=== PATIENT | female | born 2000 | race Caucasian/White ===

== ENCOUNTER 2024-05-12 06:50 | Inpatient (IN) ==
--- NOTE | 2024-05-06 12:56 | Anesthesiology Consultation ---
Date of Service May 06, 2024 Assessment & Plan (1) Encounter for pre-operative examination: Infectious disease screening: Per assessment on 05/06/24: No known recent infectious disease contacts or current infectious disease symptoms. Chart Review Chart Review: entry level account representative initiated History Surgery Operation Date: 05/12/24 08:50 Proposed Procedures p Section in AURY Gross MD Height/Weight Height: 5 ft 2 in Weight: 95.254 kg Allergies Allergy/AdvReac Type Severity Reaction Status Date / Time gluten Allergy Severe Celiac Verified 05/06/24 12:51 disease house dust mite Allergy Intermediate Hives Verified 05/06/24 11:54 mold Allergy Intermediate Itchy Verified 05/06/24 12:51 nickel Allergy Intermediate Skin Verified 05/06/24 12:51 irritation pollen extracts Allergy Intermediate Itchy Verified 05/06/24 12:51 ibuprofen AdvReac Intermediate Diarrhea Verified 05/06/24 11:54 Medications Home Medications Medication Instructions Recorded Confirmed Last Taken vit no.95-ferrous 1 tab PO DAILY 10/02/23 05/06/24 04/23/24 21:00 fumarate 28 mg-folic acid 800 mcg tablet () ondansetron 4 mg disintegrating 4 mg PO Q4H PRN nausea and 11/09/23 05/06/24 04/24/24 10:30 tablet vomiting 0 days #20 tabs Past Medical History Medical History ADHD Previously on Adderall No current meds during Anxiety Celiac disease History of COVID-19 2020: mild cold symptoms > resolved History of PCOS History of spontaneous (2020) No surgical intervention needed Hx of iron deficiency anemia Hx iron infusion [facility] 03/2024 Hx of renal calculi Passed without surgical intervention needed Migraine without aura Chronic Rheumatoid arthritis Previously taking hydroxychloroquine Follows with [facility] Rheumatology No meds during Past Family History Family History Aunt Breast cancer maternal Grandmother (Maternal) Breast cancer great grandmother Other Kidney disease No family history of adverse response to anesthesia Denies family history of Ovarian cancer Colorectal cancer Uterine cancer Past Surgical History Surgical History History of wisdom tooth extraction Social History Smoking Status: Never smoker Do You Dip or Chew Tobacco: No Hx Alcohol Use: No Hx Substance Use: No substance use type: does not use Lab Results Anesthesia Preop Results Results Anesthesia Widget: WBC 13.20 K/ul (4.8-10.8) H 04/24/24 Hgb 11.1 g/dl (12.0-16.0) L 04/24/24 Hct 35.3 % (37.0-47.0) L 04/24/24 Plt 244 K/uL (130-400) 04/24/24 Testing Electrocardiogram Date: 06/01/23 Findings: + NSR @ (48)
--- OUTSIDE RECORDS SUMMARY | 2024-05-12 06:57 | External Medical Summary | Summary of Care ---
Author Name Unknown Organization [facility] Address [address] [place] [address] Phone [phone] Care Team Providers Care Profile Shaper Operator Name Role Phone Unavailable Primary Care Provider Unavailabl e Encounter Details Date Type Department Care Team (Late st Contact Info) Description 04/25/2024 Orders Only Gynecology/Obstetrics Viviane Peacock [address] [place] [id number] Yolis Brewer CRNP [address] [place] [address] Allergies Active Allergy Reactions Criticality Noted Date Comments Ibuprofen Nausea/vomiting 05/11/2023 Lavender Oil Other (Please comment) 05/11/2023 And peppermint give her migraines B-Plex Plus Nausea/vomiting 05/11/2023 Glutens make her nauseous Molds & Smuts Other (Please comment) 05/11/2023 sneezing documented as of this encounter (statuses as of 04/25/2024) Medications Medication Sig Dispensed Refills Start Date End Date Status 27-0.8 MG Oral Tablet Take 1 Tablet by mouth daily at noon. Active OneTouch Verio w/Device KitIndications:High-r isk in second trimester,PCOS (polycystic ovarian syndrome) Use as directed. For testing blood sugar 4 times a day (1 fasting level, and 3 additional levels 1 hour after each meal: breakfast, lunch, dinner). 1 Kit 01/10/2024 Active Additional Information Patient not taking.Reported on 04/18/2024 OneTouch Verio In Vitro Strip (Glucose Blood)Indications:Hig h-risk in second trimester,PCOS (polycystic ovarian syndrome) For testing blood sugar 4 times a day (1 fasting level, and 3 additional levels 1 hour after each meal: breakfast, lunch, dinner). 100 Strip 01/10/2024 Active Additional Information Patient not taking.Reported on 04/18/2024 LancetsIndications:Hi gh-risk in second trimester,PCOS (polycystic ovarian syndrome) For testing blood sugar 4 times a day (1 fasting level, and 3 additional levels 1 hour after each meal: breakfast, lunch, dinner). 100 Each 01/10/2024 Active Additional Information Patient not taking.Reported on 04/18/2024 Breast Pump Use as directed 1 Each 02/18/2024 Active Ondansetron 4 MG Oral Tablet Disintegrating (Zofran) DISSOLVE 1 TABLET ON TONGUE EVERY 8 HOURS 30 Tablet 3 04/18/2024 Active documented as of this encounter (statuses as of 04/25/2024) Active Problems Problem Noted Date Diagnosed Date Malpresentation of fetus 04/22/2024 Overview: Breech. C/s Antepartum anemia 02/20/2024 PCOS (polycystic ovarian syndrome) 11/13/2023 Last Assessment & Plan: CONSIDERATIONS: Discussed that there is an increased incidence of spontaneous and gestational diabetes mellitus in women with PCOS. However, there is no increased incidence of poor outcomes. RECOMMENDATIONS: Due to the increased risk for diabetes in this population, recommend testing for undiagnosed type 2 diabetes mellitus with the first visit using the standard diagnostic criteria (2016 ADA Diabetes Management Guidelines) and if not performed, screen for early GDM and HgbA1c. Obesity in , antepartum 11/13/2023 Overview: Class 1 Last Assessment & Plan: Low risk first screen appreciated. Early 1'GTT not complete. Mental disorder in 11/13/2023 Overview: -Depression, anxiety, OCD, ADHD -Mood stable, no meds since 2017 -> declinesinterventions Last Assessment & Plan: -Reviewed importance of surveillance and mental health disorders in -Precautions discussed -Pt aware to seek out care/follow up as needed should her mood change - period is a uniquely high risks period for mood instability/progress to depression High-risk 11/13/2023 Overview: -Initiated care at [facility], transfer to [facility] at 13+ weeks -LR NIPT, normal first trimester scan Family history of congenital heart defect 2023 Overview: FOB - transposition of arteries Last Assessment & Plan: was referred for echo to [facility], however now get care at [facility]. Will assist with peds cardiology appt at and can cancel visit to [place]. Rheumatoid arthritis 11/13/2023 Overview: -Stopped plaquenil, for nausea/vomiting inability to tolerate PO -Overall did well with plaquenil, occasional DEMARCO otherwise no recent flare-ups -> last one 07/2023. -Last seen by Rheumatology 04/2023. -"Gets intermittent flareups Noted to have + RONNY twice, 1:160. Family history of SLE Given patient's history and physical examination, I feel that her symptoms are due to seronegative RA " Last Assessment & Plan: Overview: Current medications include n/a -> considering re-starting Plaquenil Patient denies active symptoms of rheumatoid arthritis. Previous SSA/SSB testing not performed/not indicated. 1. Rheumatoid arthritis is the most common autoimmune disease in women of childbearing age. The prevalence is approximately 1 in 2000 pregnancies with a peak incidence at 35 to 40 years of age. 2. related changes in circulating hormones may contribute to a shift to a less inflammatory state during . Approximately 70-80% of women note an improvement in their RA during , and this usually is evident as early as the first trimester. However, approximately 90% of patients will experience a flare, usually within the first three months. 3. NSAID's for symptom management are associated with oligohydramnios and premature ductus arteriosus closure and should be avoided. 4. Glucocorticoid therapy is felt to be safe in if the benefits outweigh the risks of growth restriction at high doses, need for stress-dose steroids at delivery or for medical illness if chronic use antepartum, and increased risk for premature rupture of membranes and delivery. 5. Generally, the lowest possible dose of prednisone for disease control is recommended for patients whose RA becomes active during . 6. Methotrexate, leflunamide, minocycline, gold salts, and penicillinamine are contraindicated in . 7. Hydroxychloroquine is generally thought to be safe. There is a risk for rare ocular side-effects in the fetus. 8. RA itself does not appear to have any negative effects on . There is no documented association between increased loss, IUGR, or other complications and uncomplicted RA. Therefore, increased surveillance secondary to maternal RA is not necessary. Elevated antinuclear antibody (RONNY) level 2020 Overview: -Last seen by Rheumatology 04/2023. -"Gets intermittent flareups Noted to have + RONNY twice, 1:160. Family history of SLE Given patient's history and physical examination, I feel that her symptoms are due to seronegative RA " Attention deficit hyperactiv ity disorder (ADHD), predominantly inattentive type 12/09/2020 Intractable migraine 06/06/2017 OCD (obsessive compulsive disorder) 04/06/2016 Overview: Last Assessment & Plan: contd to have mild- mod sx, mild-mod improvement seen with therapy alone Has tried multiple SSRI and SNRI-had side effects Continue with individual therapy and family therapy Trazodone as needed for sleep Sleep hygiene reviewed BIBIANA (generalized anxiety disorder) 02/15/2016 Overview: Last Assessment & Plan: Has tried multiple SSRI and SNRI-had side effects Continue with individual therapy and family therapy Episode of recurrent major depressive disorder 0 02/14/2016 Overview: Last Assessment & Plan: Depressive symptoms since middle school-school avoidance Has tried multiple SSRI and SNRI-had side effects Continue with individual therapy and family therapy Trazodone as needed for sleep Sleep hygiene reviewed Comments Yes documented as of this encounter (statuses as of 04/25/2024) Resolved Problems Problem Noted Date Diagnosed Date Resolved Date High-risk 11/13/2023 11/13/19 24 documented as of this encounter (statuses as of 04/25/2024) Social History Tobacco Use Types Packs/Day Years Used Date Smoking Tobacco: Never Smokeless Tobacco: Never Alcohol Use Standard Drinks/Week Comments Never 0 (1 standard drink = 0.6 oz pur e alcohol) Hunger Vital Sign Answer Date Recorded Within the past 12 months, y ou worried that your food would run out before you got the money to buy more. Never true 01/09/20 Within the past 12 months, t he food you bought just didn't last and you didn't have money to get more. Never true 01/09/2024 [place] Depression Scale Answer Date Recorded [place] Depression Scale Total 2 11/13/2023 The thought of harming myself has occurred to me . Never 11/13/2023 Childcare Answer Date Recorded Do you feel overwhelmed with taking care of a child, family member or friend? No 01/09/2024 Does your family need help f inding childcare? (Household - for ages 0-17 years) Not on file 01/09/2024 Clothing Answer Date Recorded Have you been unable to get clothing when it was really needed? No 01/09/2024 Is your family able to get c lothes or diapers when needed? (Household - for ages 0-17 years) Not on file 01/09/2024 Personal Safety Answer Date Recorded Do you feel unsafe or have concerns for your saf ety? No 01/09/2024 Do you have concerns for you r family's safety? (Household - for ages 0-17 years) Not on file 01/09/2024 Utilities Answer Date Recorded Do you have trouble paying y our heating, water, or electric bill? No 01/09/2024 Is your family able to pay t he heat, water, or electric bill? (Household - for ages 0-17 years) Not on file 01/09/2024 Does your family have access to good internet? (Household - for ages 0-17 years) Not on file 01/09/2024 Employment Status Answer Date Recorded Are you unemployed or without regular income? Ye s 01/09/2024 Does the household have a re gular source of income? (Household - for ages 0-17 years) Not on file 01/09/2024 Social Connections Answer Date Recorded How often do you feel lonely or isolated from th ose around you? Rarely 01/09/2024 Financial Resource Strain Answer Date R ecorded Do you have any trouble payi ng for your medications, or do you think you might in the future? No 01/09/2024 Does your family have troubl e paying for medicine? (Household - for ages 0-17 years) Not on file 01/09/2024 Transportation Needs Answer Date Record ed READ ONLY Do you have troubl e getting a ride to medical visits or work? Never True 01/09/2024 Does your family have a hard time getting a ride to doctors visits? (Household - for ages 0-17 years) Not on file 01/09/2024 Has lack of transportation k ept you from medical appointments, meetings, work, or from getting things needed for daily living? Check all that apply. (Adult - for ages 18 years and over) Not on file 01/09/2024 Do you (or your family) have trouble finding or paying for a ride (transportation)? (Household - for ages 0-17 years) Not on file 01/09/2024 Housing Stability Answer Date Recorded Do you currently live in a s helter or have no steady place to sleep at night? No 01/09/2024 READ ONLY Do you think you a re at risk of becoming homeless? No 01/09/2024 Does your family worry about paying for your home or becoming homeless? (Household - for ages 0-17 years) Not on file 0 01/09/2024 Are you homeless or worried that you might be in the future? (Adult - for ages 18 years and over) Not on file Are you (or your family) doretha eless or worried that you might be in the future? (Household - for ages 0-17 years) Not on file Food Insecurity Answer Date Recorded Do you need food for this week? No 01/09/2024 Are you able to get enough f ood for your family? (Household - for ages 0-17 years) Not on file 01/09/2024 Does your family need food t his week? (Household - for ages 0-17 years) Not on file 01/09/2024 Do you always have enough fo od for your family? (Household - for ages 0-17 years) Not on file 01/09/2024 Comments Yes Sex and Gender Information Value Date Recorded Sex Assigned at Female 10/16/2023 2:09 PM EST Gender Identity Female 10/16/2023 2:09 PM EST Sexual Orientation Straight 10/16/2023 2: 09 PM EST Job Start Date Occupation Industry Not on file Not on file Not on file documented as of this encounter Plan of Treatment Upcoming Encounters Date Type Department Care Team (Late st Contact Info) Description 04/30/2024 1:30 PM EDT Office Visit Gynecology/Obstetrics Viviane Peacock [address] [place] [phone] Yolis Brewer CRNP [address] [place] [id number] Health Maintenance Due Date Last Done Comments Depression Monitoring 2014 HPV (Gardasil) Vaccine (1 - 3-dose series) 2017 Hepatitis C Screening 2020 DTaP,Tdap,and Td Vaccines (1 - Tdap) 2021 Hepatitis B Vaccine (1 of 3 - 19+ 3-dose series) 2021 Yearly Wellness Visit 02/14/2022 02/14/2021 COVID-19 Vaccine (1 - 2022-2 4 season) 2023 Influenza Vaccine (FLU shot) (#1) 2024 Gonorrhea / Chlamydia Screen 10/14/2024 10/14/2023 Pap Smear 09/03/2026 09/03/2023 MENINGOCOCCAL (MENACTRA/MENVEO) Aged Out No longer eligible based on patient's age to complete this topic Pneumococcal Vaccine: Pediat rics (0 to 5 Years) and At-Risk Patients (6 to 64 Years) Aged Out No longer eligi ble based on patient's age to complete this topic documented as of this encounter Medical Devices Not on filedocumented as of this encounter Procedures Procedure Name Priority Date/Time Associated Diagnosis Comments CHEMISTRY-OUTSIDE Routine 04/24/2024 documented in this encounter Results * (ABNORMAL) CHEMISTRY-OUTSIDE (04/24/2024) Not all results display below - see scan for full detail OUTSIDE LAB (SEE SCANNED REPORT) Comment:SEE SCAN: HP, CBCD CREATININE-OUTSID E LAB OUTSIDE LAB (SEE SCANNED REPORT) EGFR-OUTSIDE LAB OUT SIDE LAB (SEE SCANNED REPORT) POTASSIUM-OUTSIDE LAB OUTSIDE LAB (SEE SCANNED REPORT) GLUCOSE-OUTSIDE LAB OUTSIDE LAB (SEE SCANNED REPORT) HOURS FASTING OUTSID E LAB (SEE SCANNED REPORT) TRIGLYCERIDES-OUT SIDE LAB OUTSIDE LAB (SEE SCANNED REPORT) CHOLESTEROL-OUTSI DE LAB OUTSIDE LAB (SEE SCANNED REPORT) HDL-OUTSIDE LAB OUTS AGU[facility]A LAB (SEE SCANNED REPORT) CHOL/HDL RATIO-OUTSIDE LAB OUTSIDE LA B (SEE SCANNED REPORT) LDL (CALCULATED)-OUTS [facility] LAB OUTSIDE LAB (SEE SCANNED REPORT) LDL (DIRECT MEASURE)-OUTSIDE LAB OUTSIDE LAB (SEE SCANNED REPORT) HEMOGLOBIN, C1U-EXGUNZU LAB OUTSIDE LAB (SEE SCANNED REPORT) PHOSPHORUS-OUTSID E LAB OUTSIDE LAB (SEE SCANNED REPORT) PTH-OUTSIDE LAB OUTS AGU[facility]A LAB (SEE SCANNED REPORT) MICROALBUMIN RATIO-OUTSIDE LAB OUTSIDE LA B (SEE SCANNED REPORT) PROTEIN, UA-OUTSIDE LAB OUTSIDE LAB (SEE SCANNED REPORT) HGB 11.1(L) 12.0 - 16.0 G/DL OUTSIDE LAB (SEE SCANNED REPORT) 04/24/2024 [facility] OUTSIDE LAB (SEE SCANNED REPORT) documented in this encounter
--- OUTSIDE RECORDS SUMMARY | 2024-05-12 06:57 | External Medical Summary | Summary of Care ---
Author Name Unknown Organization [facility] Address [address] [place] [address] Phone [phone] Care Team Providers Care Communication Lecturer Name Role Phone Unavailable Primary Care Provider Unavailabl e Reason for Visit * Reason Comments Field Inspector Return Encounter Details Date Type Department Care Team (Late st Contact Info) Description 05/07/2024 2:00 PM EDT Office Visit Gynecology/Obstetric s Garylyn Peacock [address] [facility] [place] [address] Gene Rajan MD [address] [facility] [address] Elevated antinuclear antibody (RONNY) level*; PCOS (polycystic ovarian syndrome); Obesity in , antepartum; Mental disorder during in third trimester; High-risk in third trimester; Family history of congenital heart defect; Rheumatoid arthritis involving left knee with negative rheumatoid factor (HCC); Unstable lie, single or unspecified fetus; Preop testing Allergies Active Allergy Reactions Criticality Noted Date Comments Ibuprofen Nausea/vomiting 05/11/2023 Lavender Oil Other (Please comment) 05/11/2023 And peppermint give her migraines B-Plex Plus Nausea/vomiting 05/11/2023 Glutens make her nauseous Molds & Smuts Other (Please comment) 05/11/2023 sneezing documented as of this encounter (statuses as of 05/07/2024) Medications Medication Sig Dispensed Refills Start Date [...] as of this encounter (statuses as of 05/07/2024) Active Problems Problem Noted Date Diagnosed Date [...] depression High-risk 11/13/2023 Overview: -Initiated care at [facility], transfer to [facility] at 13+ weeks -LR NIPT, normal first trimester scan Family history of congenital heart defect 2023 Overview: FOB - transposition of arteries Last Assessment & Plan: was referred for echo to [facility], however now get care at [facility]. Will assist with peds cardiology appt at and can cancel visit to [place]. Rheumatoid arthritis 11/13/2023 Overview: -Stopped plaquenil, for [...] as of this encounter (statuses as of 05/07/2024) Resolved Problems Problem Noted Date Diagnosed Date Resolved Date High-risk 11/13/2023 11/13/19 24 documented as of this encounter (statuses as of 05/07/2024) Social History Tobacco Use Types Packs/Day Years Used Date Smoking Tobacco: Never Smokeless Tobacco: Never Alcohol Use Standard Drinks/Week Comments Never 0 (1 standard drink = 0.6 oz pur e alcohol) Hunger Vital Sign Answer Date Recorded Within the past 12 months, y ou worried that your food would run out before you got the money to buy more. Never true 01/09/20 24 Within the past 12 months, t he food you bought just didn't last and you didn't have money to get more. Never true 01/09/2024 [place] Depression Scale Answer Date Recorded [place] Depression Scale Total 2 11/13/2023 The thought [...] 18 years and over) Not on file 05/08/202 4 Are you (or your family) doretha eless [...] on file documented as of this encounter Last Filed Vital Signs Vital Sign Reading Time Taken Comments Blood Pressure 100/60 05/07/2024 2:13 PM EDT Pulse - - Temperature - - Respiratory Rate - - Oxygen Saturation - - Inhaled Oxygen Concentration - - Weight 97.5 kg (215 lb) 05/07/2024 2:13 PM EDT Height 157.5 cm (5' 2") 05/07/2024 2:13 PM EDT Body Mass Index 39.32 05/07/2024 2:13 PM EDT documented in this encounter Progress Notes * Gene Rajan MD - 05/07/2024 2:27 PM EDT Pt here for preop H&P done Will obtain consent on day of surgery documented in this encounter H&P Notes * Gene Rajan MD - 05/07/2024 2:28 PM EDT [facility] [address] [facility] [address] Appt line [phone] Sarah Danielle is a 23 year old year old year old at 39w0d Patient is . Estimated Date of Delivery: 05/14/24 Patient is here for preop for breech presentation Care: Unremarkable OB History Para Term AB Living 2 1 SAB IAB Ectopic Multiple Live Births 1 # Outcome Date GA Lbr Beck/2nd Weight Sex Type Anes PTL Lv 2 Current 1 SAB 07/13/21 4w0d SPONTANEOUS Comments: chemical Obstetric Comments FOB#1 Jannet Rich, 24 yo, healthy however born with transposition of great vessels -> , no otherchildren from prior relationship Date Labor Sex Delivery Anesth Del Comments GA Length Weight Type Site Field Inspector History: Menstrual Index: // days. Denies h/o STDs and abnormal Paps. Her past medical/surgical histories and current medications are recorded in the electronic record. Past Surgical History: Procedure Laterality Date DENTAL SURGERY PROCEDURE NEC Family History Problem Relation Name Age of Onset No Known Problems Mother No Known Problems Father Breast Cancer Grandmother (Maternal) early? no issues, passed from natural causes Breast Cancer Aunt (Maternal) "small tumor" - radiation History Social History Socioeconomic History Marital status: Single Spouse name: Not on file Number of children: Not on file Years of education: Not on file Highest education level: Not on file Occupational History Not on file Tobacco Use Smoking status: Never Smokeless tobacco: Never Vaping Use Vaping status: Never Used Substance and Sexual Activity Alcohol use: Never Drug use: Never Sexual activity: Yes Partners: Male Other Topics Concern Not on file Social History Narrative Not on file Social Determinants of Health Financial Resource Strain: Low Risk (03/13/2024) Received from [facility] Overall Financial Resource Strain (CARDIA) Difficulty of Paying Living Expenses: Not very hard Food Insecurity: No Food Insecurity (03/13/2024) Received from [facility] Hunger Vital Sign Worried About Running Out of Food in the Last Year: Never true Ran Out of Food in the Last Year: Never true Recent Concern: Food Insecurity - Food Insecurity Present (12/25/2023) Hunger Vital Sign Worried About Running Out of Food in the Last Year: Never true Ran Out of Food in the Last Year: Sometimes true Transportation Needs: No Transportation Needs (03/13/2024) Received from [facility] PRAPARE - Transportation Lack of Transportation (Medical): No Lack of Transportation (Non-Medical): No Social Connections: Socially Integrated (01/09/2024) Social Connections How often do you feel lonely or isolated from those around you? (Adult - for ages 18 years and over): Rarely Housing Stability: Unknown (03/13/2024) Received from [facility] Housing Stability Vital Sign Unable to Pay for Housing in the Last Year: No Number of Times Moved in the Last Year: Not on file Homeless in the Last Year: No @ACTMEDS@ Physical Exam: BP 100/60 | Ht 1.575 m (5' 2") | Wt 97.5 kg (215 lb) | LMP 07/31/2023 | BMI 39.32 kg/m | BSA 2.07m CV: S1, S2. Regular rate and Rhythm Lungs: Clear to auscultation bilaterally. Abdomen: Soft with a gravid uterus and no palpable contractions. Fundal Height: 39cms heart rate: 150/min Extremities: Soft non tender calves bilaterally. Bedside sono: breech presentation A/P: 23 year old year old Breech presentation Bedside sono done today confirms breech We have discussed the risk alternatives and complications of surgery including more surgery to correct complication,risk of anesthesia,infection,damage to internal organs and . We have also discussed the possibility that pt's present situation may not change. Pt is aware and wishes to proceed to surgery. Consent is signed Gene Rajan MD 05/07/2024 2:28 PM documented in this encounter Nursing Notes * Sydnee Monge LPN - 05/07/2024 2:03 PM EDT Pt is here for pre-op for csection documented in this encounter Plan of Treatment Upcoming Encounters Date Type Department Care Team (Late st Contact Info) Description 05/21/2024 1:30 PM EDT Office Visit Gynecology/Obstetrics Viviane Peacock [address] [place] [address] BackerAmber CRNP [address] [place] [phone] Health Maintenance Due Date Last Done Comments Depression Monitoring 2014 HPV (Gardasil) Vaccine (1 - 3-dose series) 2017 Hepatitis C Screening 2020 DTap/Tdap Vaccines (1 - Tdap) 2021 Hepatitis B Vaccine (1 of 3 - 19+ 3-dose series) 2021 Yearly Wellness Visit 02/14/2022 02/14/2021 COVID-19 Vaccine (1 - 2022-2 4 season) 2024 Influenza Vaccine (FLU shot) (#1) 2024 Gonorrhea [...] Not on filedocumented as of this encounter Visit Diagnoses Diagnosis Elevated antinuclear antibody (RONNY) level- Primary Other and unspecified nonspecific immunological findings PCOS (polycystic ovarian syndrome) Polycystic ovaries Obesity in , antepartum Obesity complicating , childbirth, or the puerperium, antepartum condition or complication Mental disorder during in third trimester High-risk in third trimester Family history of congenital heart defect Family history of congenital anomalies Rheumatoid arthritis involving left knee with negative rheumatoid factor (HCC) Unstable lie, single or unspecified fetus Preop testing Preoperative examination, unspecified documented in this encounter
--- OUTSIDE RECORDS SUMMARY | 2024-05-12 06:57 | External Medical Summary | Summary of Care ---
Author Name Unknown Organization [facility] Address [address] [place] [address] Phone [phone] Care Team Providers Care Abnormal Psychology Teacher Name Role Phone Unavailable Primary Care Provider Unavailabl e Reason for Visit * Reason Comments Return Visit Encounter Details Date Type Department Care Team (Late st Contact Info) Description 04/30/2024 1:30 PM EDT Office Visit Gynecology/Obstetric s Viviane Peacock [address] [place] [address] Yolis Brewer CRNP [address] [place] [address] High-risk in third trimester*; Elevated antinuclear antibody (RONNY) level; PCOS (polycystic ovarian syndrome); Obesity in , antepartum; Mental disorder during in third trimester; Family history of congenital heart defect; Rheumatoid arthritis of other site, unspecified whether rheumatoid factor present (HCC); Breech presentation, single or unspecified fetus Allergies Active Allergy Reactions Criticality Noted Date Comments Ibuprofen Nausea/vomiting 05/11/2023 Lavender Oil Other (Please comment) 05/11/2023 And peppermint give her migraines B-Plex Plus Nausea/vomiting 05/11/2023 Glutens make her nauseous Molds & Smuts Other (Please comment) 05/11/2023 sneezing documented as of this encounter (statuses as of 04/30/2024) Medications Medication Sig Dispensed Refills Start Date [...] as of this encounter (statuses as of 04/30/2024) Active Problems Problem Noted Date Diagnosed Date [...] depression High-risk 11/13/2023 Overview: -Initiated care at [facility], transfer to [facility] at 13+ weeks -LR NIPT, normal first trimester scan Family history of congenital heart defect 2023 Overview: FOB - transposition of arteries Last Assessment & Plan: was referred for echo to [facility], however now get care at [facility]. Will assist with peds cardiology appt at [facility] and can cancel visit to [place]. Rheumatoid arthritis 11/13/2023 Overview: -Stopped plaquenil, for [...] as of this encounter (statuses as of 04/30/2024) Resolved Problems Problem Noted Date Diagnosed Date Resolved Date High-risk 11/13/2023 11/13/19 24 documented as of this encounter (statuses as of 04/30/2024) Social History Tobacco Use Types Packs/Day Years [...] money to get more. Never true 01/09/2024 Carroll Depression Scale Answer Date Recorded Carroll Depression Scale Total 2 11/13/2023 The thought [...] Sign Reading Time Taken Comments Blood Pressure 98/64 04/30/2024 1:37 PM EDT Pulse - - Temperature - - Respiratory Rate - - Oxygen Saturation - - Inhaled Oxygen Concentration - - Weight 96.6 kg (213 lb) 04/30/2024 1:37 PM EDT Height 157.5 cm (5' 2") 04/30/2024 1:37 PM EDT Body Mass Index 38.96 04/30/2024 1:37 PM EDT documented in this encounter Progress Notes * Yolis Brewer CRNP - 04/30/2024 1:52 PM EDT 38w Has had some painful, irregular, contractions. No bleeding or LOF. Baby is active, discussed movement. Has c/s scheduled for 05/12. DANIA Stallworth documented in this encounter Nursing Notes * Jessica Aguilar LPN - 04/30/2024 1:41 PM EDT 38w0d Csection 05/12 documented in this encounter Plan of Treatment Upcoming Encounters Date Type Department Care Team (Late st Contact Info) Description 05/07/2024 10:45 AM EDT Office Visit Gynecology/Obstetrics Viviane Peacock [address] [place] [address] Gene Rajan MD [address] [place] [address] Health Maintenance Due Date Last Done Comments [...] as of this encounter Visit Diagnoses Diagnosis High-risk in third trimester- Primary Elevated antinuclear antibody (RONNY) level Other and unspecified nonspecific immunological findings PCOS (polycystic ovarian syndrome) Polycystic ovaries Obesity in , antepartum Obesity complicating , childbirth, or the puerperium, antepartum condition or complication Mental disorder during in third trimester Family history of congenital heart defect Family history of congenital anomalies Rheumatoid arthritis of other site, unspecified whether rheumatoid factor present (HCC) Breech presentation, single or unspecified fetus documented in this encounter
[2024-05-12] MEDS ORDERED: PHENYLEPHRINE 100MCG/ML 10ML SYR IV ONE (06:58)
[2024-05-12] MEDS ORDERED: ONDANSETRON INJ 2 MG/ML 2 ML VIAL ONE (06:58)
[2024-05-12] MEDS ORDERED: fentaNYL citrate PF 100 MCG/2 ML VIAL ONE (06:58)
[2024-05-12] MEDS ORDERED: KETOROLAC 30 MG/ML VIAL ONE (06:58)
[2024-05-12] MEDS ORDERED: DEXAMETHASONE SOD INJ 4 MG/ML VIAL ONE (06:58)
[2024-05-12] MEDS ORDERED: MoRPHine SULFATE PF 1 MG/ML 10 ML AMP/VIAL ONE (06:58)
[2024-05-12] MEDS ORDERED: OXYTOCIN 10 UNITS/ML VIAL ONE (06:58)
[2024-05-12] MEDS ORDERED: LIDOCAINE 1% LOCAL 20 ML VIAL INFIL PRN (07:01)
[2024-05-12] MEDS ORDERED: OXYTOCIN 30 UNITS/NSS 30 UNITS/500 ML BAG IV PRN (07:01)
[2024-05-12] MEDS: LACTATED RINGER'S 1,000 ML IV PRN (07:10)
[2024-05-12] MEDS: ACETAMINOPHEN 500 MG TAB PO STA (07:21)
[2024-05-12 07:31] LABS: Hemoglobin 11.6 g/dl (12.0-16.0); Mean Corpuscular Hemoglobin 26.9 pg (25.0-34.0); Mean Corpuscular Hgb Conc 32.2 g/dL (32.0-36.0); Mean Corpuscular Volume 83.5 fL (80.0-100.0); Mean Platelet Volume 12.4 fL (9.4-12.4); Platelet Count 223 K/uL (130-400); RDW Coefficient of Variation 21.3 % (11.5-14.5); RDW Standard Deviation 64.6 fL (36.4-46.3); Red Blood Count 4.31 M/uL (4.20-5.40)
--- NOTE | 2024-05-12 07:43 | History & Physical Bridge Note ---
Date of Service May 12, 2024 History & Physical Bridge Note I have examined the patient, reviewed the History & Physical and in the interval since the performance of the History & Physical I have noted the following changes of clinical significance: no changes noted Bed side US: jane hatch
[2024-05-12] MEDS: CITRIC ACID/SODIUM CITRATE 15 ML UDC ONE (08:09)
[2024-05-12] MEDS: CITRIC ACID/SODIUM CITRATE 15 ML UDC PO STA (08:09)
[2024-05-12] MEDS: ceFAZolin 2000MG 2,000 MG/15 ML SYR IV STA (08:13)
[2024-05-12] MEDS ORDERED: ePHEDrine sulfate 50 MG/5 ML SYR ONE (08:48)
[2024-05-12] MEDS ORDERED: NALBUPHINE HCL INJ 10 MG/ML AMP IV PRN (08:51)
[2024-05-12] MEDS ORDERED: diphenhydrAMINE 50 MG/ML VIAL IV PRN (08:51)
[2024-05-12] MEDS ORDERED: PROMETHAZINE 6.25 MG/50.25 ML BAG IV PRN (08:51)
[2024-05-12] MEDS ORDERED: NALOXONE HCL 1 MG in SODIUM CHLORIDE 0.9% 1,000 ML IV PRN (08:51)
[2024-05-12] MEDS ORDERED: LACTATED RINGER'S 500 ML IV PRN (08:51)
[2024-05-12] MEDS ORDERED: NALOXONE HCL 0.08 MG in SYRINGE 1.8 ML IV PRN (08:51)
[2024-05-12] MEDS ORDERED: NALOXONE HCL 0.4 MG/1 ML VIAL/CARP IV PRN (08:51)
[2024-05-12] MEDS ORDERED: HYDROmorphone INJ 0.5 MG/0.5 ML SYR IV PRN (08:51)
[2024-05-12] MEDS ORDERED: ONDANSETRON INJ 2 MG/ML 2 ML VIAL IV PRN (08:51)
[2024-05-12] MEDS ORDERED: ePHEDrine sulfate 50 MG/ML AMP IV PRN (08:51)
[2024-05-12] MEDS ORDERED: DC INTRASPINAL MORPHINE SCH (09:00)
[2024-05-12] MEDS ORDERED: HYDROCORTISONE ACETATE 25 MG SUPP PR PRN (09:32)
[2024-05-12] MEDS ORDERED: diphenhydrAMINE Capsule 25 MG CAP PO PRN (09:32)
[2024-05-12] MEDS ORDERED: BENZOCAINE 20% SPRY 85 APPLN/85 GM CAN EXT PRN (09:32)
[2024-05-12] MEDS ORDERED: MAGNESIUM HYDROXIDE SUSP 30 ML UDC PO PRN (09:32)
[2024-05-12] MEDS ORDERED: CALCIUM CARBONATE 500 MG CHEWABLE TAB PO PRN (09:32)
[2024-05-12] MEDS ORDERED: DIPHTHER/TETAN/PERTUS Vaccine (Tdap, Adol/Adult) 0.5mL IM ONE (09:32)
--- NOTE | 2024-05-12 09:38 | Anesthesiology Progress Note ---
Date of Service May 12, 2024 Anesthesia Post Procedure Vital Signs Vital Signs: Temp Pulse Resp BP Pulse Ox 05/12/24 09:34 91 05/12/24 09:34 74 05/12/24 09:33 72 05/12/24 09:33 118/60 05/12/24 09:32 99 05/12/24 09:32 69 05/12/24 08:00 20 05/12/24 08:00 20 05/12/24 07:35 36.7 C 20 05/12/24 07:30 20 05/12/24 07:30 20 05/12/24 07:00 107 H 116/72 Transfer of Care Handoff Completed per policy Notes Mental Status: alert / awake / arousable and participated in evaluation Patient Amnestic to Procedure: No Nausea / Vomiting: adequately controlled Pain: adequately controlled Airway Patency, RR, SpO2: stable & adequate BP & HR: stable & adequate Hydration State: stable & adequate Neuraxial Anesthesia: was administered and sensory block is resolving Anesthetic Complications: no major complications apparent and Pt Satisfied with anesthetic care
--- NOTE | 2024-05-12 09:44 | Operative Report ---
Post Operative Report Pre & Post Diagnosis Operation Date: 05/12/24 08:50 <No data on this case meets the specified criteria> I identified the patient and participated in the time-out.: Yes Procedure Operation Date: 05/12/24 08:50 <No data on this case meets the specified criteria> Primary Low transverse Csection with Pfannestiel incision Surgeon Elba Gross MD Platform Stapler [place] Chakraborty Estimated Blood Loss 705 (QBL 705) Findings Consistent with Post-Op Diagnosis Baby was a viable female delivered at 08:45 AM, jane breech presentation, Apgars 8/9, weight 3840 g, maternal findings, normal uterus, fallopian tubes and ovaries. Specimens placenta and cord Drains Jacobson catheter drained 100 mL of clear urine Anesthesia Type Spinal Complications none Disposition Accompanied Patient To Recovery: Yes Indications patient is a 23-year-old G1, P0 at 39 weeks and 5 days of gestation, jane breech presentation Description of Procedure Patient was taken to operating room where a spinal anesthesia was given without difficulty. She was placed in dorsal supine position with a leftward tilt. She was prepared and draped in usual sterile fashion. A financial skin incision was made and carried through to the underlying layer of fascia with the Bovie. Fascia was incised in the midline and incision was extended laterally with the help of Glover scissors. Then the upper aspect of the fascial incision was grasped with 2 Lance clamps elevated the underlying rectus muscles were dissected off sharply with Glover scissors. Same thing was done on the lower incision. Then the muscles were in the midline, peritoneum was identified grasped with 2 pickups and entered sharply with Metzenbaum scissors. Peritoneal incision was extended superior and inferiorly with good visualization of the bladder. The bladder blade was inserted. Vesicouterine peritoneum was identified, grasped with pickups and entered sharply with Metzenbaum scissors, bladder flap was created digitally and bladder blade was reinserted. Uterus was incised in transverse fashion, incision was extended laterally, membranes were ruptured and clear fluid was obtained. Baby's buttocks were delivered , followed by legs and arms in flexion position and then head without difficulty. Mouth and nose were suctioned there was dried on the field he was vigorously crying and moving. The cord was clamped times and cut at 1 minute delay and then the infant was handed off to the pediatric team. Then the placenta was delivered manually as intact and complete. Uterus was externalized and cleared of all clots and debris's. Uterine incision was repaired with 0 Vicryl in a running locked fashion, second umbricating layer was placed with the same suture in running locked fashion. Excellent hemostasis achieved. Cul-de-sac and the pelvis was irrigated with warm normal saline and suctioned. Incision was checked of anesthetic again. Uterus was returned to the abdomen, parietal peritoneum was reapproximated with 3-0 Vicryl in a running fashion and the muscles were reapproximated in the same suture in a running fashion. All of the fascia and rectus muscles were hemostatic. Rectus fascia was reapproximated with 3-0 Vicryl starting from both corners meeting in the midline. Subcuticular fat tissue was brought together with 2-0 Vicryl in a running fashion, skin was closed with 4-0 Monocryl in a subcuticular cuticular fashion. The mom and baby tolerated procedure well. Sponge needle instrument count was correct x3. No complications happened, I was present during whole procedure. My permit review assistant was needed for retraction, hemostasis and aid during delivery of infant I attest to the content of the Intraoperative Record and any orders documented therein. Any exceptions are noted below.
[2024-05-12] MEDS ORDERED: LACTATED RINGER'S 1,000 ML IV SCH (10:00)
[2024-05-12] MEDS ORDERED: IBUPROFEN 600 MG TAB PO SCH (10:00)
[2024-05-12] MEDS ORDERED: NO NARCOTICS OR SEDATIVES SCH (10:15)
[2024-05-12] MEDS: OXYTOCIN 20 UNITS/LR 1,002 ML IV SCH (13:08)
[2024-05-12] MEDS: ACETAMINOPHEN 325 MG TAB PO SCH (13:45)
[2024-05-12] MEDS: KETOROLAC 30 MG/ML VIAL IV PRN (14:28)
[2024-05-12] MEDS: SIMETHICONE 80 MG CHEW PO SCH (17:19)
[2024-05-12] MEDS: SENNA 8.6 MG TAB PO PRN (19:54)
[2024-05-13] MEDS ORDERED: diphenhydrAMINE 50 MG/ML VIAL IV PRN (02:52)
[2024-05-13] MEDS ORDERED: NO NARCOTICS OR SEDATIVES SCH (02:52)
[2024-05-13] MEDS ORDERED: HYDROmorphone INJ 0.5 MG/0.5 ML SYR IV PRN (02:52)
[2024-05-13] MEDS ORDERED: PROMETHAZINE 12.5 MG/50.5 ML BAG IV PRN (02:52)
[2024-05-13 06:31] LABS: Basophils # (auto) 0.07 K/uL (0.00-0.20); Basophils % (auto) 0.3 %; Eosinophils # (auto) 0.06 K/uL (0.00-0.50); Eosinophils % (auto) 0.3 %; Hematocrit (blood only) 29.6 % (37.0-47.0); Hemoglobin 9.6 g/dl (12.0-16.0); Immature Granulocytes # (auto) 0.14 K/uL (0.01-0.20); Immature Granulocytes % (auto) 0.7 %; Lymphocytes # (auto) 3.28 K/uL (1.20-3.40); Lymphocytes % (auto) 16.2 %; Mean Corpuscular Hgb Conc 32.4 g/dL (32.0-36.0); Mean Corpuscular Volume 83.4 fL (80.0-100.0); Mean Platelet Volume 12.9 fL (9.4-12.4); Monocytes # (auto) 1.86 K/uL (0.11-0.59); Monocytes % (auto) 9.2 %; Neutrophils # (auto) 14.84 K/uL (1.40-6.50); Neutrophils % (auto) 73.3 %; Platelet Count 207 K/uL (130-400); RDW Coefficient of Variation 21.2 % (11.5-14.5); RDW Standard Deviation 63.8 fL (36.4-46.3); Red Blood Count 3.55 M/uL (4.20-5.40); White Blood Count 20.25 K/ul (4.8-10.8)
--- NOTE | 2024-05-13 07:00 | Obstetrical Progress Note ---
Date of Service May 13, 2024 Assessment & Plan Admission and Anticipated Discharge Date Admission Date: May 12, 2024 Subjective Patient is seen and examined. She feels well, no complaints. Pain is under control with oral meds. Ambulating without dizziness Voiding without difficulty Tolerating regular diet with out N&V Flatus + Bleeding is minimal No fever/ chills/ CP/ SOB/ N&V/ Leg pain Breast feeding without problems Vital Signs Temp Pulse Resp BP Pulse Ox O2 Del Method 05/13/24 03:25 36.8 C 89 16 100/66 97 Room Air 05/13/24 00:30 36.8 C 89 18 98/66 L 97 Room Air 05/12/24 20:15 37.1 C 81 18 111/70 97 Room Air Lab Results 05/12/24 05/13/24 Range/Units 07:15 05:58 WBC 14.80 H 20.25 H (4.8-10.8) K/ul RBC 4.31 3.55 L (4.20-5.40) M/uL Hgb 11.6 L 9.6 L (12.0-16.0) g/dl Hct 36.0 L 29.6 L (37.0-47.0) % MCV 83.5 83.4 (80.0-100.0) fL MCH 26.9 27.0 (25.0-34.0) pg MCHC 32.2 32.4 (32.0-36.0) g/dL RDW Std Deviation 64.6 H 63.8 H (36.4-46.3) fL RDW Coeff of Naty 21.3 H 21.2 H (11.5-14.5) % Plt Count 223 207 (130-400) K/uL MPV 12.4 12.9 H (9.4-12.4) fL Immature Gran % (Auto) 0.7 % Neut % (Auto) 73.3 % Lymph % (Auto) 16.2 % Mesa % (Auto) 9.2 % Eos % (Auto) 0.3 % Baso % (Auto) 0.3 % Neut # (Auto) 14.84 H (1.40-6.50) K/uL Lymph # (Auto) 3.28 (1.20-3.40) K/uL Mesa # (Auto) 1.86 H (0.11-0.59) K/uL Eos # (Auto) 0.06 (0.00-0.50) K/uL Baso # (Auto) 0.07 (0.00-0.20) K/uL Immature Gran # (Auto) 0.14 (0.01-0.20) K/uL Treponema pallidum Ab Negative (Negative) Blood Type A Positive Antibody Screen NEGATIVE PE: General: Alert, orientedx3, NAD CVS: S1S2 RRR Lungs; CTAB Abd: soft, NT, ND, BS+, fundus firm, below Umbilicus Incision/ ISADORA dressing: Clean, dry, intact Perineum intact, Lochia rubra minimal Ext; NT, no edema AP: 23 yo s/p C Section, pod# 1 VSS Afebrile doing well WBCC elevated, has been elevated during , repeat in am Continue routine postop care Encourage ambulation, PO intake All questions were answered Results & Data Vital Signs (Past 12 Hours) Vital Signs Temp Pulse Resp BP Pulse Ox O2 Del Method 05/13/24 03:25 36.8 C 89 16 100/66 97 Room Air 05/13/24 00:30 36.8 C 89 18 98/66 L 97 Room Air 05/12/24 20:15 37.1 C 81 18 111/70 97 Room Air
[2024-05-13 07:06] LABS: Tear Drop Cells 1+
[2024-05-13] MEDS: DOCUSATE SODIUM 100 MG CAP PO SCH (08:13)
[2024-05-13] MEDS: ONDANSETRON INJ 2 MG/ML 2 ML VIAL IV PRN (08:13)
[2024-05-13] MEDS: PRENATAL VITAMIN 1 TAB PO SCH (08:13)
[2024-05-13] MEDS: FERROUS SULFATE 325 MG TAB PO SCH (08:13)
[2024-05-13] MEDS: oxyCODONE HCL IR 5 MG TAB (IMMEDIATE RELEASE) PO PRN (08:14)
[2024-05-13] MEDS ORDERED: bisacodyL 5 MG TABEC PO SCH (20:00)
[2024-05-13] MEDS ORDERED: valACYclovir HCL 500 MG TABLET PO ONE (21:25)
[2024-05-14] MEDS ORDERED: Nursing to Pharmacy Communication SCH (05:00)
[2024-05-14 06:14] LABS: Basophils # (auto) 0.08 K/uL (0.00-0.20); Basophils % (auto) 0.6 %; Eosinophils # (auto) 0.35 K/uL (0.00-0.50); Eosinophils % (auto) 2.4 %; Hematocrit (blood only) 31.5 % (37.0-47.0); Hemoglobin 9.8 g/dl (12.0-16.0); Immature Granulocytes # (auto) 0.08 K/uL (0.01-0.20); Immature Granulocytes % (auto) 0.6 %; Lymphocytes # (auto) 3.36 K/uL (1.20-3.40); Lymphocytes % (auto) 23.3 %; Mean Corpuscular Hemoglobin 26.6 pg (25.0-34.0); Mean Corpuscular Hgb Conc 31.1 g/dL (32.0-36.0); Mean Corpuscular Volume 85.6 fL (80.0-100.0); Mean Platelet Volume 12.1 fL (9.4-12.4); Monocytes # (auto) 1.04 K/uL (0.11-0.59); Monocytes % (auto) 7.2 %; Neutrophils # (auto) 9.52 K/uL (1.40-6.50); Neutrophils % (auto) 65.9 %; Platelet Count 219 K/uL (130-400); RDW Coefficient of Variation 21.5 % (11.5-14.5); RDW Standard Deviation 66.5 fL (36.4-46.3); Red Blood Count 3.68 M/uL (4.20-5.40); White Blood Count 14.43 K/ul (4.8-10.8)
[2024-05-14 06:35] LABS: Anisocytosis Present; Polychromasia 1+; Tear Drop Cells 1+
[2024-05-14] MEDS: MoRPHine SULFATE PF 1 MG/ML 10 ML AMP/VIAL INT SPINAL ONE (07:11)
[2024-05-14] MEDS: SODIUM CHLORIDE 0.9% 1,000 ML IV SCH (07:11)
--- NOTE | 2024-05-14 08:43 | Obstetrical Progress Note ---
Date of Service May 14, 2024 Assessment & Plan Admission and Anticipated Discharge Date Admission Date: May 12, 2024 Subjective Patient is seen and examined. She feels well, no complaints. Pain is under control with oral meds. She has not been taking Motrin due to h/o N&V with it. Just takin Tylenol and Oxycodone. Willing to try liquid form. Ambulating without dizziness Voiding without difficulty Tolerating regular diet with out N&V Flatus + BM neg Bleeding is minimal No fever/ chills/ CP/ SOB/ N&V/ Leg pain Breast feeding without problems. Vital Signs Temp Pulse Resp BP Pulse Ox O2 Del Method 05/13/24 23:50 37.2 C 86 16 109/76 97 Room Air Vital Signs Temp Pulse Resp BP Pulse Ox O2 Del Method 05/13/24 23:50 37.2 C 86 16 109/76 97 Room Air 05/13/24 19:00 36.8 C 94 H 18 107/67 97 Room Air 05/13/24 15:43 36.7 C 91 H 16 121/74 Room Air Lab Results 05/12/24 05/13/24 05/14/24 Range/Units 07:15 05:58 05:45 WBC 14.80 H 20.25 H 14.43 H (4.8-10.8) K/ul RBC 4.31 3.55 L 3.68 L (4.20-5.40) M/uL Hgb 11.6 L 9.6 L 9.8 L (12.0-16.0) g/dl Hct 36.0 L 29.6 L 31.5 L (37.0-47.0) % MCV 83.5 83.4 85.6 (80.0-100.0) fL MCH 26.9 27.0 26.6 (25.0-34.0) pg MCHC 32.2 32.4 31.1 L (32.0-36.0) g/dL RDW Std Deviation 64.6 H 63.8 H 66.5 H (36.4-46.3) fL RDW Coeff of Naty 21.3 H 21.2 H 21.5 H (11.5-14.5) % Plt Count 223 207 219 (130-400) K/uL MPV 12.4 12.9 H 12.1 (9.4-12.4) fL Immature Gran % (Auto) 0.7 0.6 % Neut % (Auto) 73.3 65.9 % Lymph % (Auto) 16.2 23.3 % Graham % (Auto) 9.2 7.2 % Eos % (Auto) 0.3 2.4 % Baso % (Auto) 0.3 0.6 % Neut # (Auto) 14.84 H 9.52 H (1.40-6.50) K/uL Lymph # (Auto) 3.28 3.36 (1.20-3.40) K/uL Graham # (Auto) 1.86 H 1.04 H (0.11-0.59) K/uL Eos # (Auto) 0.06 0.35 (0.00-0.50) K/uL Baso # (Auto) 0.07 0.08 (0.00-0.20) K/uL Immature Gran # (Auto) 0.14 0.08 (0.01-0.20) K/uL Polychromasia 1+ Anisocytosis Present Tear Drop Cells 1+ 1+ Treponema pallidum Ab Negative (Negative) Blood Type A Positive Antibody Screen NEGATIVE PE: General: Alert, orientedx3, NAD CVS: S1S2 RRR Lungs; CTAB Abd: soft, NT, ND, BS+, fundus firm, below Umbilicus Incision: Clean, dry, intact Perineum intact, Lochia rubra minimal Ext; NT, no edema AP: 23 yo s/p C Section, pod# 2 VSS Afebrile doing well Continue routine postop care Encourage ambulation, PO intake All questions were answered D/C home , f/u in office Results & Data Vital Signs (Past 12 Hours) Vital Signs Temp Pulse Resp BP Pulse Ox O2 Del Method 05/13/24 23:50 37.2 C 86 16 109/76 97 Room Air
[2024-05-14] MEDS ORDERED: IBUPROFEN 600 MG TAB PO PRN (09:33)
[2024-05-14] MEDS ORDERED: bisacodyL 10 MG SUPP PR PRN (09:33)
[2024-05-14] MEDS: IBUPROFEN 200 MG/10 ML UDC PO PRN (09:46)
[2024-05-14 09:55] VITALS: TEMP 98.2; O2SAT 98
[2024-05-14] MEDS: ACETAMINOPHEN 325 MG TAB PO PRN (14:47)
[2024-05-14 18:01] VITALS: BP 107/72; PULSE 90; RESP 20
== END 2024-05-14 17:50 | disposition home health service (06) | DRG 788 ==
LOC: 4S1 06:50 → EDSTATUS 10:10 → 4E2 13:00
DX: Z3A.39 39 weeks gestation of pregnancy; Z37.0 Single live birth; O32.1XX0 Maternal care for breech presentation, not applicable or unspecified; Z88.6 Allergy status to analgesic agent; Z91.048 Other nonmedicinal substance allergy status; Z91.018 Allergy to other foods